=== PATIENT | male | born 1980 | race Caucasian/White ===

== ENCOUNTER 2019-07-24 05:51 | Observation (INO) ==
[2019-07-24] MEDS ORDERED: KEFZOL 2 GM/D5W 2 GM/50 ML IVPB IV ONE (06:18)
[2019-07-24] MEDS ORDERED: VANCOMYCIN 1 GM/NS 1 GM/250 ML IVPB IV ONE ×2 (06:18→09:00)
[2019-07-24 06:53] LABS: AGAP 12; ALBUMIN 4.1 g/dL (3.5-5.0); ALKALINE PHOSPHATASE 77 U/L (32-122); BUN 7 mg/dL (8-22); CALCIUM 8.9 mg/dL (8.8-10.2); CHLORIDE 106 mmol/L (98-107); COSMO 280; ESTIMATED GFR > 60; GLUCOSE 111 mg/dL (70-104); GOT 16 U/L (10-34); GPT 23 U/L (10-44); POTASSIUM 3.7 mmol/L (3.5-5.1); SODIUM 141 mmol/L (136-145); TCO2 23 mmol/L (25-35); TOTAL PROTEIN 7.1 g/dL (6.3-8.3)
--- NOTE | 2019-07-24 06:53 | PROVIDER DOCUMENTATION ---
HPI-General Adult - General Chief Complaint: Return/Recheck Stated Complaint: REVISIT/RETURN Time Seen by Provider: 07/24/19 06:01 Source: patient Allergies/Adverse Reactions: Patient Allergies Allergy/AdvReac Type Severity Reaction Status Date / Time No Known Allergies Allergy Verified 07/24/19 06:07 Home Medications: Home Medication List Medication Instructions Recorded Confirmed Last Taken Type Omeprazole [Prilosec] 20 mg PO DAILY@0700 07/24/19 07/24/19 07/23/19 History Past History - Adult - PAST MEDICAL HISTORY-ADULT Major Childhood Illnesses: reports: denies history Cardiovascular: reports: denies history Respiratory: reports: denies history Gastrointestinal: reports: Crohn's, other (IBS) Obstetrical/Gynecological: reports: denies history Genitourinary: reports: denies history Musculoskeletal: reports: denies history Neurological: reports: denies history Endocrine/Immune: reports: denies history Other Conditions: reports: denies history - PRIOR SURGERIES/PROCEDURES Surgical/Procedure History: reports: none - IMMUNIZATION STATUS Childhood Immunizations: UTD Flu Vaccine: See Nurse Assessment - FAMILY HISTORY Family History: reviewed, not pertinent Progress - PLAN OF CARE/RESULTS Progress/Plan/Lab Results: Vital Signs - 8 hr 07/24/19 05:58 07/24/19 06:43 Temperature 97.3 F L Pulse Rate 78 60 Respiratory Rate 18 18 Blood Pressure 145/86 135/96 O2 Sat by Pulse Oximetry 94 L 95 Orders Category Date Time Status Resuscitation Status Routine Care 07/24/19 06:21 Ordered BLOOD CULTURE [BLDCUL] Stat Lab 07/24/19 06:33 Ordered CBC WITH ELECTRONIC DIFF [HEME] Stat Lab 07/24/19 06:30 Results COMPREHENSIVE METABOLIC PANEL [CHEM] Stat Lab 07/24/19 06:30 Received SED RATE [HEME] Stat Lab 07/24/19 06:30 Received Cefazolin 2 gm/D5w [Kefzol 2 gm/D5w] Med 07/24/19 06:18 Active 2 gm in 50 ml IV NOW Vancomycin 1 gm/Ns Med 07/24/19 06:18 Active 1 gm in 250 ml IV NOW Transfer/Admit Order [TRANSFER] Routine Transfer 07/24/19 06:20 Ordered Clinically stable under my care. His hand cellulitis appears mildly worsening and now has erythema to the palmar surface of the hand. No fever or other symptoms. He will need further IV antibiotics. Case discussed with Dr Monreal who admitted him. Given Ancef and Vancomycin in the ED. Result Diagrams: 07/24/19 06:30 07/24/19 06:30 Departure - Departure Date of Disposition Decision: 07/24/19 Time of Disposition Decision: 06:30 DIAGNOSIS: Cellulitis of hand, right Disposition: ADMITTED INPATIENT 09 Certified Medical Emergency: Emergent Condition: Fair - Critical Care Note This patient required my direct & personal management of CC.: No
[2019-07-24 07:14] LABS: BASO# 0.08 X1000 (0.0-0.2); BASO% 0.8 % (0.0-0.8); EOS# 1.01 X1000 (0.0-0.7); EOS% 9.6 % (0.0-10.0); HEMATOCRIT 47.8 % (42.0-52.0); HEMOGLOBIN 16.4 g/dL (14.0-18.0); IMM GRAN# 0.02 X1000 (0.0-0.04); IMM GRAN% 0.2 % (0.0-0.5); LYMPH# 3.18 X1000 (1.2-3.4); LYMPH% 30.1 % (20.5-51.1); MCH 31.3 PG (27-31); MCHC 34.3 g/dL (33-37); MCV 91.2 FL (81-99); MONO# 0.84 X1000 (0.11-0.59); NEUT# 5.43 X1000 (1.4-6.5); NEUT% 51.3 % (42.2-75.2); PLT 225 X1000 (130-400); RBC 5.24 XMIL (4.7-6.1); RDW 13.9 % (11.5-14.5); WBC 10.56 X1000 (4.8-10.8)
[2019-07-24] MEDS: KEFZOL 2 GM/D5W 2 GM/50 ML IVPB IV SCH ×2 (07:51→17:11)
[2019-07-24] MEDS ORDERED: VANCOMYCIN IV PER PHARMACY MISC SCH (08:30)
[2019-07-24] MEDS ORDERED: VANCOMYCIN 1 GM/NS 1 GM/250 ML IVPB ONE (08:48)
[2019-07-24] MEDS ORDERED: VANCOMYCIN 1 GM/NS 1 GM/250 ML IVPB SCH (09:00)
--- NOTE | 2019-07-24 09:25 | HISTORY AND PHYSICAL ---
PRIMARY CARE PHYSICIAN: None. CHIEF COMPLAINT: Worsening right index finger wound after being seen in the ER on 07/23/2019 and placed on p.o. antibiotics with no improvement in symptoms. HISTORY OF PRESENTING ILLNESS: This is a 39-year-old, male, who initially presented to [facility] ER on 07/23/2019 with complaints of right index finger with pain and swelling that progressed to the dorsum of the right hand with streaking up his forearm. Noticed it this past Sunday and thought he may have been bitten by a spider or an insect, was placed on p.o. antibiotics. He also did have an incision and drainage of it at that time, and the drainage showed a purulent large amount according to ER documentation. He was sent home at that time, has had no improvement of his symptoms, and was told to return to the emergency room if there was no improvement. So he came back this morning. Now note erythema, edema, warmth to touch, pain with movement. Still states that he is unsure of what he was bitten by. His workup in the emergency room on the : They did do a 3-view hand x-ray that was negative. His white blood cell count today was 10.56, but he will be admitted for further evaluation and treatment for failed outpatient treatment. PAST MEDICAL HISTORY: Crohn's. PAST SURGICAL HISTORY: Tonsillectomy and esophageal dilation. FAMILY HISTORY: Reviewed and noncontributory. SOCIAL HISTORY: He is currently a pack-a-day smoker and has been so for 15+ years. Denies any alcohol or illicit drug use. ALLERGIES: He has no known drug allergies. HOME MEDICATIONS: He does not list any medications that he takes routinely at this time. LABORATORY DATA: Showed a white blood cell count of 10.56, hemoglobin 16.4, hematocrit 47.8, platelets 225. Sodium 141, potassium 3.7, chloride 106, CO2 23. BUN of 7, creatinine 1, glucose 111. IMAGING STUDIES: X-ray of the right hand on 07/23/2019 was negative. REVIEW OF SYSTEMS: He denied any fever, chills, blurred vision, dizziness, chest pain, coughing, shortness of breath. Denied any abdominal pain, constipation, diarrhea, burning or hurting with urination. He does have pain to the right index finger with movement. PHYSICAL EXAMINATION: VITAL SIGNS: On arrival he had a temperature of 97.3 degrees, pulse 78, respirations 18, blood pressure 145/86, satting 94% on room air. GENERAL: This is a 39-year-old, male, who is lying in the bed and answers questions appropriately. HEENT: Normocephalic, atraumatic. Normal ENT inspection. Oropharynx and nares are clear. EYES: Pupils are equal, round, reactive to light and accommodation. Extraocular movements are intact. NECK: Normal inspection, normal range of motion. LUNGS: Clear to auscultation bilaterally with equal lung expansion and chest wall movement. HEART: Regular rate and rhythm. No murmurs, rubs or gallops. ABDOMEN: Soft, nontender, nondistended. Bowel sounds are present x4 quadrants. MUSCULOSKELETAL: His right hand index finger noted to have edema to the dorsum with mild erythema that extends into the dorsum of the right hand, warmth to touch, pain with movement, had an incision and drainage on the per ER documentation that showed purulent, large amount of drainage at that time. No drainage noted at this time. NEUROLOGICAL: The cranial nerves 2-12 appear grossly intact. ASSESSMENT: 1. Right index finger cellulitis secondary to a possible spider/insect bite with failed outpatient treatment. 2. Tobacco abuse. PLAN: He will be admitted to the medical unit. Placed on a regular diet. We will consult Surgery. Blood cultures x2 are pending. We will start him on vancomycin per pharmacy protocol. [place] 7.5 p.o. q. 4 hours p.r.n. We will repeat a CBC in the a.m., and further orders after seen by attending. Dictated by PAN Marrero for Rusty Workman MD cc: PAN Marrero MD
--- NOTE | 2019-07-24 09:43 | GENERAL SURGERY CONSULTATION ---
DATE: 07/24/2019 REQUESTING PHYSICIAN: Hospitalist. REASON FOR CONSULTATION: Right index finger infection. HISTORY OF PRESENT ILLNESS: A 39-year-old gentleman,who reports several days ago he had an insect bite to his right index finger while working in the yard. He had been seen in the ER multiple times and started on oral antibiotics and told to come back if it was worsening, which he did. On his previous visits, he did have an x-ray that did not show any osteomyelitis. He has got significant pain in his right hand and right index finger, but he is able to move it. He has had associated swelling also. PAST MEDICAL HISTORY: History of Crohn. PAST SURGICAL HISTORY: Tonsillectomy, esophageal dilation. SOCIAL HISTORY: Current smoker. HOME MEDICATIONS: None. ALLERGIES: None. FAMILY HISTORY: Reviewed with patient, noncontributory. REVIEW OF SYSTEMS: Full 14 systems reviewed and negative, except as specified in HPI. PHYSICAL EXAMINATION: Vital Signs: Patient is currently afebrile. His vital signs are stable. General exam: No acute distress. male looks stated age. HEENT: Normocephalic, atraumatic. Pupils equal, round, react to light. Mucous membranes moist. Oropharynx benign. Neck: Supple. Trachea midline. Cardiovascular: Regular rate and rhythm. Lungs: Grossly clear. Abdomen: Soft, nontender, nondistended. Extremities: Wound noted to the dorsal aspect of the right index finger at the proximal interphalangeal joint. There is some erythema that is noted to the hand itself. There is some swelling and tenderness in the hand, but the swelling does not seem to be to the point of compartment syndrome. He is able to move his fingers, although he has somewhat limited motion on his 1st, 2nd, and 3rd digit, but he is able to move it. He had a vascular palpable radial pulse. Neurologic: Grossly intact. Skin: As noted above. LABORATORY: White blood count 10. Remainder of labs reviewed. X-RAYS: Imaging from previous admission reviewed. ASSESSMENT AND PLAN: A 39-year-old gentleman with a right index finger wound and cellulitis. 1. Right index finger: At this time, he had it previously drained in the emergency room at a previous visit. I do not think there is any additional fluid at this point that needs to be drained. I would recommend keeping the area elevated, and keep him on intravenous antibiotics as done by the hospitalist. We will actually get the nurses to clean the wound with Vashe every day, and we will continue to monitor. If it does get to a point where we suspect compartment syndrome, may need to transfer him to [facility] and get Orthopedics involved, but otherwise at this point we will continue to monitor him. cc: Miguel Moyer MD
[2019-07-24] MEDS: NORCO-7.5 PO PRN ×3 (10:15→20:41)
[2019-07-24] MEDS ORDERED: FLU VACCINE IM ONE (16:53)
[2019-07-24] MEDS ORDERED: ZOFRAN IV PRN (18:09)
--- NOTE | 2019-07-24 19:53 | HISTORY AND PHYSICAL ---
ADDENDUM: Patient seen and examined by myself. Full note dictated and discussed with nurse practitioner. Patient presented to the ER earlier with swelling, pain and redness of his finger. It was incised and drained. He was given antibiotics and was discharged home. Unfortunately, symptoms worsened, and therefore he came back. We are going to admit him to the hospital for IV antibiotics, ask surgery for intervention. We will continue antibiotics, pain control and will follow. cc: Rusty Workman MD
[2019-07-24] MEDS: VANCOMYCIN 2 GM in NS 500 ML IV SCH (20:41)
[2019-07-25] MEDS: NORCO-7.5 PO PRN ×2 (01:02→09:10)
[2019-07-25] MEDS: KEFZOL 2 GM/D5W 2 GM/50 ML IVPB IV SCH ×3 (01:03→15:43)
[2019-07-25 06:46] LABS: BASO# 0.15 X1000 (0.0-0.2); BASO% 1.4 % (0.0-0.8); EOS# 1.37 X1000 (0.0-0.7); EOS% 12.4 % (0.0-10.0); HEMATOCRIT 39.1 % (42.0-52.0); HEMOGLOBIN 12.9 g/dL (14.0-18.0); IMM GRAN# 0.02 X1000 (0.0-0.04); IMM GRAN% 0.2 % (0.0-0.5); LYMPH# 3.37 X1000 (1.2-3.4); LYMPH% 30.6 % (20.5-51.1); MCH 30.7 PG (27-31); MCV 93.1 FL (81-99); MONO# 0.97 X1000 (0.11-0.59); MONO% 8.8 % (1.7-9.3); NEUT# 5.13 X1000 (1.4-6.5); NEUT% 46.6 % (42.2-75.2); PLT 262 X1000 (130-400); RDW 13.7 % (11.5-14.5); WBC 11.01 X1000 (4.8-10.8)
[2019-07-25] MEDS: VANCOMYCIN 2 GM in NS 500 ML IV SCH ×2 (10:35→22:41)
[2019-07-25] MEDS: PERCOCET-10 PO PRN ×2 (13:08→22:42)
[2019-07-25] MEDS: DILAUDID IV PRN ×2 (16:07→20:56)
--- NOTE | 2019-07-25 18:59 | PROGRESS NOTE ---
DATE: 07/25/2019 SUBJECTIVE: Patient notes that his hand still hurts. Denies any worsening of his redness. OBJECTIVE: Temperature 97.6, pulse 88, respiratory 20, and BP 147/78.General: Patient is pleasant. He is in no respiratory distress. HEENT: Normocephalic. Neck: Supple. Cardiovascular: Regular rate. Chest: Clear. Abdomen: Soft. Extremities: Moves all extremities. Skin: His right hand actually has less erythema than it did last night. His finger is slightly less swollen. ASSESSMENT: 1. Cellulitis right index finger. 2. Chronic tobacco abuse. PLAN: We will continue with Ancef and vancomycin. Continue pain control, and will follow. cc: Rusty Workman MD
--- NOTE | 2019-07-25 19:41 | GENERAL SURGERY PROGRESS NOTE ---
DATE: 07/25/2019 SUBJECTIVE: Patient is doing okay, says he is feeling a little bit better. OBJECTIVE: Vital Signs: Patient is currently afebrile. His vital signs are stable. General: In no acute distress. HEENT: Normocephalic, atraumatic. Pupils equal, round, reactive to light. Mucous membranes moist. Oropharynx benign. Neck: Supple, trachea midline. Cardiovascular: Regular rate and rhythm. Lungs: Grossly clear. Abdomen: Soft, nontender, nondistended. Extremities: Right index finger appears to be improved. Removed the packing. Swelling is down. Erythema essentially on the proximal phalange. Tenderness to the dorsal aspect of the hand is better. Vascular: All extremities perfused. Neurologic: Grossly intact. Skin: As noted above. LABORATORY: White blood cell count is 11 which is slightly up from yesterday's 10.5. Remainder of labs reviewed. ASSESSMENT AND PLAN: A 39-year-old gentleman with cellulitis of the right index finger. At this time continue intravenous antibiotics. It seems to be improving with the vancomycin. We will continue to follow while he is in the hospital. cc: Miguel Moyer MD
[2019-07-26] MEDS: KEFZOL 2 GM/D5W 2 GM/50 ML IVPB IV SCH ×4 (01:30→23:42)
[2019-07-26] MEDS: PRILOSEC PO SCH (06:02)
[2019-07-26] MEDS: DILAUDID IV PRN ×3 (12:23→22:12)
--- NOTE | 2019-07-26 13:17 | GENERAL SURGERY PROGRESS NOTE ---
DATE: 07/26/2019 Mr. Weinstein says his finger is better. There is still a little bit of purulence that comes from the wound, however. His white count yesterday was 11,000. The plan is to continue IV antibiotic therapy. We will recheck his white count tomorrow. I do not think he is ready for discharge yet. cc: Jaden Padilla MD
--- NOTE | 2019-07-26 17:00 | PROGRESS NOTE ---
DATE: 07/26/2019 SUBJECTIVE: Patient with no new complaints. Actually, he states that his finger is less swollen and less painful. OBJECTIVE: Vital Signs: Temperature 98, pulse 65, respiratory rate 18, and BP 151/74. General: Patient is in no distress. He is pleasant. HEENT: Normocephalic. Neck: Supple. Cardiovascular: Regular rate. Chest: Clear. Abdomen: Soft. Extremities: Moves all extremities. Skin: His right index finger cellulitis is actually improved. His hand edema and erythema has improved as well. ASSESSMENT: 1. Right index finger cellulitis. 2. Chronic tobacco abuse. PLAN: We will stop vancomycin, and continue Ancef. If he continues to improve, hopefully can discharge home over the next day or 2. Again, discussed with the patient the perils of smoking and importance of stopping. cc: Rusty Workman MD
[2019-07-27 05:23] LABS: HEMATOCRIT 39.2 % (42.0-52.0); HEMOGLOBIN 13.2 g/dL (14.0-18.0); MCH 30.5 PG (27-31); MCHC 33.7 g/dL (33-37); MCV 90.5 FL (81-99); MPV 10.2 FL (7.4-10.4); RBC 4.33 XMIL (4.7-6.1); RDW 13.1 % (11.5-14.5); WBC 10.49 X1000 (4.8-10.8)
[2019-07-27 06:02] LABS: AGAP 12; ALBUMIN 3.7 g/dL (3.5-5.0); ALKALINE PHOSPHATASE 69 U/L (32-122); BUN 8 mg/dL (8-22); CALCIUM 8.8 mg/dL (8.8-10.2); CHLORIDE 104 mmol/L (98-107); COSMO 277; ESTIMATED GFR > 60; GLUCOSE 91 mg/dL (70-104); GOT 16 U/L (10-34); GPT 11 U/L (10-44); POTASSIUM 3.7 mmol/L (3.5-5.1); SODIUM 140 mmol/L (136-145); TCO2 23 mmol/L (25-35); TOTAL PROTEIN 6.5 g/dL (6.3-8.3)
[2019-07-27] MEDS: PRILOSEC PO SCH (06:22)
[2019-07-27] MEDS: KEFZOL 2 GM/D5W 2 GM/50 ML IVPB IV SCH ×2 (08:38→16:12)
[2019-07-27] MEDS ORDERED: NICODERM PATCH TD SCH (11:30)
--- NOTE | 2019-07-27 12:43 | PROGRESS NOTE ---
DATE: 07/27/2019 SUBJECTIVE: The patient overall notes that his hand is improving. He is actually starting to move his hand a lot better. Denies any fevers or chills. PHYSICAL EXAMINATION: Vital Signs: Reviewed. Temperature 97.8 degrees, pulse 63, respiratory rate 18, BP 158/91. General: Patient is pleasant. He is in no respiratory distress. HEENT: Normocephalic. Neck: Supple. Cardiovascular: Regular rate. Chest: Clear. Abdomen: Soft. Extremities: Moves all extremities. Neurologic: No changes. Skin: His right index finger has actually improved tremendously over admission. He has very little redness of his dorsal aspect of his hand and very little redness distal to his lesion on his index finger. He is actually starting to have better movement. ASSESSMENT: Cellulitis. He has been on vancomycin but given his recent levels, even though he stopped it yesterday, he technically is still on vancomycin today. We are going to continue to hold that. He had been on Keflex for 2 days and had been on Bactrim for a day or two prior to coming to the hospital. We are going to add clindamycin orally. If he continues to improve with that, hopefully, he can discharge home tomorrow. cc: Rusty Workman MD
[2019-07-27] MEDS: CLEOCIN PO SCH ×2 (13:30→21:18)
[2019-07-27] MEDS: PERCOCET-10 PO PRN (21:18)
[2019-07-28] MEDS: KEFZOL 2 GM/D5W 2 GM/50 ML IVPB IV SCH (00:28)
[2019-07-28 05:43] VITALS: BP 143/74
[2019-07-28 05:58] LABS: HEMOGLOBIN 13.4 g/dL (14.0-18.0); MCH 30.4 PG (27-31); MCHC 33.5 g/dL (33-37); MCV 90.7 FL (81-99); MPV 10.5 FL (7.4-10.4); RBC 4.41 XMIL (4.7-6.1); RDW 13.2 % (11.5-14.5); WBC 10.52 X1000 (4.8-10.8)
[2019-07-28 06:02] LABS: AGAP 13; ALBUMIN 3.7 g/dL (3.5-5.0); ALKALINE PHOSPHATASE 72 U/L (32-122); BUN 9 mg/dL (8-22); CALCIUM 8.8 mg/dL (8.8-10.2); CHLORIDE 104 mmol/L (98-107); COSMO 280; CREATININE 0.9 mg/dL (0.7-1.2); ESTIMATED GFR > 60; GLUCOSE 92 mg/dL (70-104); GOT 17 U/L (10-34); GPT 10 U/L (10-44); POTASSIUM 3.8 mmol/L (3.5-5.1); SODIUM 141 mmol/L (136-145); TCO2 24 mmol/L (25-35); TOTAL PROTEIN 6.7 g/dL (6.3-8.3)
[2019-07-28] MEDS: CLEOCIN PO SCH (06:10)
[2019-07-28] MEDS: PRILOSEC PO SCH (06:11)
--- NOTE | 2019-07-28 07:32 | GENERAL SURGERY PROGRESS NOTE ---
DATE: 07/28/2019 SUBJECTIVE: Patient seems to be doing well. He has got no complaints at the moment. He says he is able to move his right hand a whole lot better. OBJECTIVE: Vital Signs: Patient is currently afebrile. His vital signs are stable. General: No acute distress. HEENT: Normocephalic, atraumatic. Pupils equal, round, reactive to light. Mucous membranes moist. Oropharynx benign. Neck: Supple. Trachea midline. Cardiovascular: Regular rate and rhythm. Lungs: Grossly clear. Abdomen: Soft, nontender, nondistended. Extremities: Right hand and index finger much improved. It look like there is a chronic wound over the initial incision and drainage, but the erythema and swelling and tenderness have improved. Vascular: All extremities perfused. Neurologic: Grossly intact. Skin: As noted above. LABORATORY: White blood cell count reviewed from yesterday. No labs this morning as of yet. ASSESSMENT AND PLAN: A 39-year-old gentleman with cellulitis of his right index finger. 1. Cellulitis, right index finger. At this time, I agree with transition over to oral antibiotics. I think he has done well. It has improved significantly. I do not think we are going to do anything more aggressive. cc: Miguel Moyer MD
[2019-07-28] MEDS ORDERED: KEFLEX PO SCH (09:00)
--- NOTE | 2019-07-29 08:57 | DISCHARGE SUMMARY ---
ADMISSION DATE: 07/24/2019 DISCHARGE DATE: 07/28/2019 CHIEF COMPLAINT: Infection of right index finger. HISTORY OF PRESENT ILLNESS: This is a 39-year-old gentleman who presented to [facility] complaining of pain and swelling to his right index finger. He was found to have cellulitis. Blood cultures were obtained which revealed no growth after 48 hours. He was initially placed on antibiotic coverage of vancomycin. He was followed with general surgery and has been transitioned over to Keflex and clindamycin for discharge. Thankfully, he responded to antibiotics and needed no intervention for surgery. He has remained afebrile and, thankfully, is ready for discharge today. DISCHARGE VITAL SIGNS: Blood pressure is 143/74, with a heart rate of 60, respirations 16, temperature 97.3 degrees oral, with room air saturations of 93-95%. DISCHARGE PHYSICAL EXAMINATION: Cardiovascular: Regular rate and rhythm. S1 and S2 are appreciated. Calves are nontender bilaterally with peripheral pulses palpable x4 extremities. Pulmonary: Breath sounds are clear with no increased work of breathing noted. Chest rises and falls symmetric with respiration. Gastrointestinal: Abdomen is soft, nontender, nondistended, with bowel sounds in all 4 quadrants. Neurologic: He is alert and oriented x3. Extremities: Right hand is improved. He does have slight erythema, swelling, and tenderness, although this is improved greatly. He does have good PMS to this hand. Skin is warm and dry with some redness to the dorsal aspect of his hand and distal to the lesion on his right index finger. DISCHARGE MEDICATIONS: 1. Prilosec 20 mg p.o. daily. 2. Clindamycin 300 mg p.o. t.i.d. x7 days. 3. Keflex 500 mg p.o. t.i.d. x5 days. 4. [place] 10/325 one q.4 hours p.r.n. pain. FOLLOWUP: 1. Dr. Miguel Moyer. He needs to call to schedule an appointment in the next two weeks, sooner if needed. 2. He has been instructed to call to be seen sooner or return to the ER for any syncope, dizziness, chest pain, palpitations, temperature greater than 101, any recurring swelling, redness to his right hand and finger, any purulent drainage, foul drainage, or any questions or concerns that he may have. He is being discharged home in stable condition with family members. TIME SPENT: This is a greater than 30 minute discharge. Dictated by PAN Condon for Rusty Workman MD cc: PAN Condon MD
--- NOTE | 2019-07-29 09:19 | DISCHARGE SUMMARY ---
ADMISSION DATE: 07/24/2019 DISCHARGE DATE: 07/28/2019 ADDENDUM: Patient was seen and examined by myself. Full note dictated and discussed with nurse practitioner. On discharge, patient is awake, alert. His hand has tremendously improved. He has very minimal erythema just distal to his PIP on his right hand index finger. He has no dorsal swelling or erythema, which is all improved. We are going to discharge him home on antibiotics. He will follow up outpatient with primary care. cc: Rusty Workman MD
== END 2019-07-28 09:35 | disposition home or self-care (01) | DRG 603 ==
LOC: P.ED 05:51 → P.EDIPHOLD 07:26 → SUATTDRO 07:26 → INTOOBSV 07:27
PROVIDERS: ATTEND Family Medicine